=== PATIENT | female | born 1990 | race Caucasian/White ===

== ENCOUNTER 2016-06-12 03:34 | Emergency (ER) | payer SELFPAY ==
[~2016-06-12] VITALS: Ht 160 cm; Wt 70.9 kg
[~2016-06-12 03:34] MED LIST: PREDNISONE20 MG PO; PRENATAL VITAMI1 TA5 PO; PYRIDIUM200 M1 PO; SEPTRA DS 8001 TAB PO; ZITHROMAX 250M250 MG PO
[2016-06-12 03:38] VITALS: BP 140/92; TEMP 98.7
[2016-06-12 05:40] VITALS: PULSE 68
== END 2016-06-12 05:45 | disposition home or self-care (01) ==
LOC: COL.ER 03:34
DX: J02.9 Acute pharyngitis, unspecified (principal); H61.21 Impacted cerumen, right ear

== ENCOUNTER 2020-01-29 04:13 | Outpatient (CLI) | payer MEDICAID ==
[~2020-01-29] VITALS: Ht 160 cm; Wt 87.3 kg
--- NOTE | 2020-01-29 04:15 | NUR ---
G3L2 at 38 weeks and 5 days arrives to unit with complaint of contractions every 4 minutes for the past hour. Pt has had 2 previous sections. Pt denies vaginal bleeding or large gush of fluid. Reports good movement. Denies RUQ pain, changes in vision, or headaches. Pt oriented to room, call light within reach, bed in low and locked position. Changed into clean gown. US and toco explained and applied. Vital signs obtained. Admission assessment started. SVE fingertip
[2020-01-29 04:30] VITALS: BP 143/93; PULSE 60; TEMP 98.7
[2020-01-29 05:00] VITALS: BP 144/93; PULSE 57
[2020-01-29 05:30] VITALS: BP 135/67; PULSE 55
--- NOTE | 2020-01-29 05:30 | NUR ---
SVE unchanged from previous exam. Explained to patient Dr. Blake order ok to dishcarge if cervix unchanged. Pt agreeable to this plan. Return precautions reviewed.
--- NOTE | 2020-01-29 05:45 | NUR ---
Discharge instructions reviewed with patient, pt verbalized understanding. Pt seen ambulating off unit with spouse.
== END 2020-01-29 05:45 | disposition home or self-care (01) ==
LOC: LDRO 04:13
DX: O62.9 Abnormality of forces of labor, unspecified (principal); Z3A.38 38 weeks gestation of pregnancy

== ENCOUNTER 2020-01-29 09:41 | Inpatient (IN) | payer MEDICAID ==
[~2020-01-29] VITALS: Ht 160 cm; Wt 87.3 kg
[2020-01-29] VITALS (8 sets, daily range): BP systolic 108–152; BP diastolic 58–95; PULSE 57–75; TEMP 98.3–99.1
--- NOTE | 2020-01-29 10:08 | NUR ---
0930- Pt arrives on unit via wheelchair from admisstions. Pt into bathroom, changes into gown. 0937- Pt into bed, EFM and TOCO on and tracing. Pt states she was seen early this morning for a labor check but was sent home because cervix was not dilated. She states the contractions became stronger and closer together, was not timing them. Pt denies complication with . States +FM. 0939- SVE by this RN, -/0, membranes felt over baby's head, no bulging bag of water noted, bloody show on glove. 0942- Dr Marie notified, see physician notification. 0945- Yasmine, T, WET SANDER notified that we are preparing Pt for repeat C/S, WET SANDER will come to hospital LYN. IV start in LH by JOURDAN Lehman, labs obtained, LR infusing but positional. 0950- This RN at bedside. Pt bearing down with UCs. Encouraged to breathe. SVE by this RN, /0. 0952- Dr Bethea at nurses station, comes to bedside. 0951- Dr Marie updated, see physician notification. 0955- SVE by /0, MD feels membranes over head. Pt and room prepped for vaginal delivery. Pt bearing down with UCs. Dante, Nursery RN. 0958- Dr Marie at bedside. Pt coached on pushing. 1008- of viable female infant, to mother's abd where dried and stimulated. Tended to by nursery RN. IV noted to be infultrated. VORB from Dr Marie to give Pitocin 10mu IM after delivery of placenta then start IV if possible to give PP Pitocin per policy order. 1015- Spontaneous delivery of placenta. Fundal massage by . 1017- Pitocin given IM per order. Laceration repaired by , Pt tolerated well. 1020- IV start in right hand without difficulty. Pitocin started at 333mu/hr 1040- Pericare completed, ice pack and clean chux under Pt. Bed back together and Pt assisted to comfortable position. Pt denies needs at this time. Call light within reach.
[2020-01-29 11:32] LABS: HEMOGLOBIN 12.3 g/dl (12.5-16.0); MEAN CELL VOLUME 87 fl (80.0-100.0); MEAN CORPUSCULAR HEMOGLOBIN 28 pg (27.0-31.0); MEAN CORPUSCULAR HGB CONC 32 g/dl (33.0-37.0); MEAN PLATELET VOLUME 10.8 fl (7.4-10.4); PLATELET COUNT 175 K/mm3 (130-400); RED BLOOD COUNT 4.47 M/mm3 (4.10-5.30); REDCELL DISTRIBUTION WIDTH-CV 14.7 % (11.5-14.5)
[2020-01-29 12:09] LABS: BAND 11 % (0-10); LYMPHOCYTE 3 % (20.0-51.0); NEUTROPHILS 85 % (42.0-75.2); PLATELET ESTIMATE NORMAL (NORMAL)
--- NOTE | 2020-01-29 12:30 | NUR ---
1230- Pt ambulates to bathroom independently with RN standby. Voids without difficutly, 300mls. Pericare explained and completed. Peripad and underwear on. Pt ambulates to room, oriented to room. Call light within reach. Pt denies needs at this time.
[2020-01-30 03:00] VITALS: BP 128/87; PULSE 59; TEMP 98
[2020-01-30 07:09] LABS: HEMOGLOBIN 10.4 g/dl (12.5-16.0)
[2020-01-30 07:14] LABS: HEMATOCRIT 32.1 % (37.0-47.0)
[2020-01-30 07:35] VITALS: BP 121/70; PULSE 71; TEMP 97.6
--- NOTE | 2020-01-30 10:10 | NUR ---
Initial visit; Parents thanked [employer] Consultant for offering congratulations and God's blessings for the of their daughter. Corporate Travel Consultant thanked patient for choosing [facility].
== END 2020-01-30 13:10 | disposition home or self-care (01) | DRG 807 ==
LOC: LDRO 09:41 → LDR 10:51 → OB 12:45
PROVIDERS: ADMIT Obstetrics & Gynecology
PROC: 10E0XZZ Delivery of Products of Conception, External Approach (ICD-10-PCS; principal; 2020-01-30)
PROC: 0KQM0ZZ Repair Perineum Muscle, Open Approach (ICD-10-PCS; 2020-01-30)
PROC: 3E033VJ Introduction of Other Hormone into Peripheral Vein, Percutaneous Approach (ICD-10-PCS; 2020-01-30)
DX: O34.211 Maternal care for low transverse scar from previous cesarean delivery (principal); Z37.0 Single live birth; Z3A.38 38 weeks gestation of pregnancy; O70.1 Second degree perineal laceration during delivery; O62.3 Precipitate labor
CPT/HCPCS: J2590; J7120

== ENCOUNTER 2021-09-09 14:36 | Inpatient (IN) | payer MEDICAID ==
[2021-09-09] VITALS (11 sets, daily range): BP systolic 140–177; BP diastolic 75–95; PULSE 49–82; TEMP 98.3–98.8
[~2021-09-09] VITALS: Ht 160 cm; Wt 103.6 kg
--- NOTE | 2021-09-09 14:50 | NUR ---
1450 Patient to LR3 via wheelchair, changed into gown, FHR/TOCO monitors placed and explained. Patient states that contractions around 1230 and have become closer and stronger since 1330. Denies any leaking of fluid, vaginal bleeding, decreased movement. Patient states she thought she felt a pop on the way here. Plan or care discussed. SVE-2//-2 and amniotest negative, mucus noted on glove. Dr. Bethea at nurses station and updated, order to recheck in an hour.
--- NOTE | 2021-09-09 15:45 | NUR ---
Patient very uncomfortable with contractions and asking for epidural. SVE-5/90/-[address] Bethea at nurses station and updated and orders received for admission and epidural. Reema LAST notified. 1555: IV started in left hand, blood obtained and to lab, LR bolus started. 1600: Reema LAST at bedside and patient assisted to edge of bed. Patient has contractions and has urge to push. 1605: SVE-8/100/0 Patient sat back up and Reema LAST about to begin, patient states "I'm about to do something", 1608: SROM at this time with meconium fluid noted. Kalyan SOLIMAN at bedside assisting and notified Dr. Bethea at nurses station. Patient set up for vaginal delivery. 1610:IV pulled out in left hand, Glendy SOLIMAN starts IV in right wrist. Dr. Bethea at bedside and difficulty tracing FHR. 1614: Patient pushing with contraction 1616: Spontaneous vaginal delivery of viable male- head followed by body, infant to patients abdomen, Abilio RN assumes care of infant. Cord clamped x2 and cut by physician, cord blood obtained, Hola Pritchett RN gets cord gases. 1621: Spontaneous vaginal delivery of placenta and pitocin bolus started per protocol. 1624: Fundal massage done, firm, bleeding WNL. Lidocaine injected in perinem per physician. Physician repairs laceration. Fundal massage done, firm, bleeding WNL. Pericare done, patient repositioned, and ice pack to perineum. Plan of care discussed.
[2021-09-09 16:14] LABS: BASO % 0.3 % (0.0-2.0); EOS # 0.1 K/mm3 (0.0-0.7); EOS % 0.6 % (0.0-4.0); GRAN # 9.3 K/mm3 (1.4-6.5); GRAN % 74.9 % (42.2-75.2); HEMATOCRIT 39.1 % (37.0-47.0); HEMOGLOBIN 12.9 g/dl (12.5-16.0); LYMPH # 1.7 K/mm3 (1.2-3.4); LYMPH % 13.6 % (20.0-51.0); MEAN CELL VOLUME 82 fl (80.0-100.0); MEAN CORPUSCULAR HEMOGLOBIN 27 pg (27-31); MEAN CORPUSCULAR HGB CONC 33 g/dl (33.0-37.0); MEAN PLATELET VOLUME 10.3 fl (7.4-10.4); MONO # 1.2 K/mm3 (0.1-0.6); MONO % 9.5 % (1.7-9.3); PLATELET COUNT 181 K/mm3 (130-400); RED BLOOD COUNT 4.78 M/mm3 (4.10-5.30); REDCELL DISTRIBUTION WIDTH-CV 15.9 % (11.5-14.5)
[2021-09-09 16:27] LABS: ALBUMIN 2.8 gm/dL (3.5-5.0); BILIRUBIN,TOTAL 1.2 mg/dL (0.2-1.2); CALCIUM 8.4 mg/dL (8.4-10.2); CREATININE, serum 0.51 mg/dL (0.57-1.11); POTASSIUM 3.7 mmol/L (3.5-4.5); TOTAL PROTEIN 6.3 gm/dL (6.2-8.1)
--- NOTE | 2021-09-09 19:20 | NUR ---
Up to bathroom with steady gait. Voids good amount. performs own pericare, tucks application, clean gown on. Ambulates to room. Oriented to room and plan of care.
[2021-09-10 01:15] VITALS: BP 133/71; PULSE 74; TEMP 98
[2021-09-10] MEDS ORDERED: MOTRIN 800800 MG/TAB PO (07:07)
[2021-09-10 07:30] VITALS: BP 131/84; PULSE 61; TEMP 98.1
[2021-09-10 12:30] VITALS: BP 146/87; PULSE 59; TEMP 98.2
[2021-09-10 16:30] VITALS: BP 133/75; PULSE 67; TEMP 98.4
--- NOTE | 2021-09-10 18:25 | NUR ---
1825-Reivewed Dishcarge insturctions with patient. Denies questions. Verbalized understanding of need to schedule 6 week visit. 183-Awaiting ride to arrive. Reported off to JOURDAN Yu who will escort patient off unit.
== END 2021-09-10 18:50 | disposition home or self-care (01) | DRG 806 ==
LOC: LDRO 14:36 → LDR 15:52 → OB 19:15
PROVIDERS: ADMIT Student in an Organized Health Care Education/Training Program
PROC: 10E0XZZ Delivery of Products of Conception, External Approach (ICD-10-PCS; principal; 2021-09-09)
PROC: 0KQM0ZZ Repair Perineum Muscle, Open Approach (ICD-10-PCS; 2021-09-09)
DX: O34.211 Maternal care for low transverse scar from previous cesarean delivery (principal); O10.92 Unspecified pre-existing hypertension complicating childbirth; Z37.0 Single live birth; O99.214 Obesity complicating childbirth; O62.3 Precipitate labor; O70.1 Second degree perineal laceration during delivery; O77.0 Labor and delivery complicated by meconium in amniotic fluid; Z3A.38 38 weeks gestation of pregnancy
CPT/HCPCS: J2590; J7120